=== PATIENT | male | born 1950 | race Caucasian/White ===

== ENCOUNTER 2016-06-01 17:24 | Inpatient (IN) | payer MEDICARE, OTHER ==
[~2016-06-01] VITALS: Ht 180.3 cm; Wt 65.8 kg
[~2016-06-01 17:24] MED LIST: CLON0.1T PO; CYAN100096 PO; DEXL60CA3 PO; FLUO-120 PO; GABA-532 PO; LOSA25TA13 PO; LURA40TA PO; METO50TA3 PO; PRAV40TA3 PO; RANI150T12 PO; TEMA30CA PO; [UNRECOGNIZED DRUG - OTHER]; [UNRECOGNIZED DRUG - OTHER]
[2016-06-01] MEDS ORDERED: IV SET PRIMARY PUMP SET 1 EA INFUS.SET MC ONE ×3 (18:00→22:34)
[2016-06-01] MEDS ORDERED: ONDANSETRON HCL/PF 4 MG/2 ML VIAL IVP ONE (18:00)
[2016-06-01] MEDS ORDERED: IV NS 0.9% 1,000 ML BAG IV ONE ×2 (18:00→20:30)
[2016-06-01] MEDS ORDERED: ONDANSETRON HCL/PF 4 MG/2 ML VIAL ONE (18:00)
[2016-06-01] MEDS ORDERED: IV NS 0.9% 1,000 ML ONE ×2 (18:00→20:15)
[2016-06-01 18:22] LABS: ANION GAP 11 (5-14); CALCIUM, SERUM 8.6 mg/dL (8.5-10.1); CARBON DIOXIDE 31 mmol/L (21-32); CHLORIDE 99 mmol/L (98-107); CREATININE 1.5 mg/dL (0.6-1.3); GFR 47 mL/min (>60); GLUCOSE 132 mg/dL (74-106); POTASSIUM 3.3 mmol/L (3.5-5.1); SODIUM SERUM 137 mmol/L (136-145); UREA NITROGEN, BLOOD 10 mg/dL (7-18)
[2016-06-01 18:28] LABS: ALANINE AMINOTRANSFERASE 48 U/L (12-78); ALBUMIN 2.7 g/dL (3.4-5.0); ASPARTATE AMINOTRANSFERASE 85 U/L (15-37); BILIRUBIN,DIRECT 0.6 mg/dL (0.0-0.2); BILIRUBIN,TOTAL 1.4 mg/dL (0.2-1.0); INDIRECT BILIRUBIN 0.8 mg/dL (0.0-1.1)
[2016-06-01 18:30] LABS: DIFF TOTAL % 100 %; EOSINOPHILS # (AUTO) 0.1 /CMM (0.0-0.7); EOSINOPHILS % (AUTO) 0.7 % (0.0-6.0); HEMATOCRIT 34 % (39-51); LYMPHOCYTES # (AUTO) 0.8 /CMM (0.8-4.8); LYMPHOCYTES % (AUTO) 7.3 % (20.0-44.0); MEAN CORPUSCULAR HEMOGLOBIN 28 PG (26.0-33.0); MEAN CORPUSCULAR HGB CONC 32 g/dl (31.0-36.0); MEAN CORPUSCULAR VOLUME 87 fL (80-96); MONOCYTES # (AUTO) 0.6 /CMM (0.1-1.30); MONOCYTES % (AUTO) 5.9 % (2.0-12.0); NEUTROPHILS % (AUTO) 86.1 % (43.0-81.0); PLATELET COUNT (AUTO) 312 /CMM (150-450); RED BLOOD CELL COUNT(AUTO) 3.92 MIL/uL (4.5-6.0); TROPONIN I < 0.017 ng/mL (0.00-0.056); WHITE BLOOD COUNT (AUTO) 10.5 K/uL (4.3-11.0)
[2016-06-01] MEDS ORDERED: CT SWABBABLE VALVE TRANS SET 1 EA INFUS.SET MC ONE (18:40)
[2016-06-01] MEDS ORDERED: IOHEXOL-300 100 ML VIAL IV ONE (18:40)
[2016-06-01] MEDS ORDERED: IV NS 0.9% 0 ML IV ONE (18:40)
[2016-06-01] MEDS ORDERED: IV SET PRIMARY 1 EA INFUS.SET MC ONE (20:15)
[2016-06-01] MEDS ORDERED: PIPERACILLIN /TAZOBACTAM 3.375 G VIAL IV ONE (20:28)
[2016-06-01] MEDS ORDERED: IV D5W 50 ML IV ONE (20:29)
[2016-06-01] MEDS ORDERED: PIPERACILLIN /TAZOBACTAM 3.375 G in IV D5W 50 ML IV ONE (20:30)
[2016-06-01 21:28] VITALS: BP 158/89
[2016-06-01] MEDS ORDERED: Z GUARD REMEDY 2 OZ OINT TP PRN (22:00)
[2016-06-01] MEDS ORDERED: ACETAMINOPHEN 325 MG TABLET PO PRN (22:00)
[2016-06-01] MEDS: IV NS 0.9% 1,000 ML IV PRN (22:34)
[2016-06-01] MEDS ORDERED: SECONDARY IV SET 1 EA INFUS.SET MC ONE (22:36)
[2016-06-02] MEDS ORDERED: POTASSIUM CHLORIDE 20 MEQ TAB.PRT.SR PO SCH (00:30)
[2016-06-02] MEDS ORDERED: POTASSIUM CHLORIDE 20 MEQ TAB.PRT.SR PO ONE ×3 (00:30→11:30)
[2016-06-02] MEDS ORDERED: PIPERACILLIN /TAZOBACTAM 3.375 G VIAL IV ONE (01:03)
[2016-06-02] MEDS ORDERED: IV D5W 50 ML IV ONE (01:04)
[2016-06-02] MEDS: PIPERACILLIN /TAZOBACTAM 3.375 G in IV D5W 50 ML IV SCH ×4 (01:23→17:03)
[2016-06-02] MEDS ORDERED: ONDANSETRON HCL/PF 4 MG/2 ML VIAL ONE (02:25)
[2016-06-02] MEDS: ONDANSETRON HCL/PF 4 MG/2 ML VIAL IVP PRN ×3 (02:28→14:20)
[2016-06-02 06:43] LABS: DIFF TOTAL % 100 %; EOSINOPHILS % (AUTO) 0.5 % (0.0-6.0); HEMATOCRIT 32 % (39-51); HEMOGLOBIN 10.7 g/dL (13.5-17.5); LYMPHOCYTES # (AUTO) 0.6 /CMM (0.8-4.8); MEAN CORPUSCULAR HEMOGLOBIN 29 PG (26.0-33.0); MEAN CORPUSCULAR HGB CONC 33 g/dl (31.0-36.0); MEAN CORPUSCULAR VOLUME 87 fL (80-96); MONOCYTES # (AUTO) 0.5 /CMM (0.1-1.30); MONOCYTES % (AUTO) 5.6 % (2.0-12.0); NEUTROPHILS # (AUTO) 7.1 /CMM (1.8-8.9); NEUTROPHILS % (AUTO) 86.9 % (43.0-81.0); PLATELET COUNT (AUTO) 287 /CMM (150-450); RED BLOOD CELL COUNT(AUTO) 3.71 MIL/uL (4.5-6.0); WHITE BLOOD COUNT (AUTO) 8.1 K/uL (4.3-11.0)
[2016-06-02 07:32] LABS: ALBUMIN 2.4 g/dL (3.4-5.0); BILIRUBIN,TOTAL 1.3 mg/dL (0.2-1.0); CALCIUM, SERUM 8.1 mg/dL (8.5-10.1); CREATININE 1.5 mg/dL (0.6-1.3); PHOSPHORUS 3.3 mg/dL (2.5-4.9); POTASSIUM 3.4 mmol/L (3.5-5.1); TOTAL PROTEIN, SERUM 7.3 g/dL (6.4-8.2)
[2016-06-02 07:35] LABS: THYROID STIMULATING HORMONE 1.125 uIU/mL (0.358-3.74)
[2016-06-02] MEDS: PANTOPRAZOLE 40 MG VIAL IV SCH (07:54)
[2016-06-02 08:00] VITALS: BP 168/105
[2016-06-02] MEDS: METOPROLOL TARTRATE 50 MG TABLET PO SCH ×2 (09:16→16:58)
[2016-06-02] MEDS: LOSARTAN POTASSIUM 25 MG TABLET PO SCH (09:16)
[2016-06-02] MEDS ORDERED: CLONIDINE HCL 0.1 MG TABLET PO PRN (10:30)
[2016-06-02] MEDS ORDERED: Magnesium 1GM/D5W 100ML PREMIX 100 ML IV SCH (12:00)
[2016-06-02 12:57] LABS: ADD UA MICROSCOPIC YES; KETONES,URINE TRACE (NEGATIVE); LEUKOCYTE ESTERASE ,URINE NEGATIVE (NEGATIVE)
[2016-06-02 12:59] LABS: ADD URINE CULTURE NO; MUCUS,URINE Few /LPF (None Seen); RBC,URINE 0-2 /HPF (0-2); WBC,URINE 0-2 /HPF (0-3)
[2016-06-02] MEDS ORDERED: SECONDARY IV SET 1 EA INFUS.SET MC ONE (14:02)
[2016-06-02 16:00] VITALS: BP 126/82
[2016-06-02] MEDS: CLONIDINE HCL 0.1 MG TABLET PO SCH (18:24)
[2016-06-02] MEDS ORDERED: ONDANSETRON HCL/PF 4 MG/2 ML VIAL IV PRN (18:30)
[2016-06-02 20:00] VITALS: BP 130/80
[2016-06-02] MEDS: ZOLPIDEM TARTRATE 5 MG TABLET PO PRN (21:45)
[2016-06-03] MEDS: PIPERACILLIN /TAZOBACTAM 3.375 G in IV D5W 50 ML IV SCH ×4 (00:03→17:02)
[2016-06-03] MEDS: IV NS 0.9% 1,000 ML IV PRN (05:32)
[2016-06-03 07:33] LABS: CALCIUM, SERUM 8.4 mg/dL (8.5-10.1); CREATININE 1.3 mg/dL (0.6-1.3); POTASSIUM 3.6 mmol/L (3.5-5.1)
[2016-06-03 07:53] VITALS: BP 144/86
[2016-06-03 08:00] VITALS: BP 144/86
[2016-06-03] MEDS: PANTOPRAZOLE 40 MG VIAL IV SCH (08:24)
[2016-06-03] MEDS: MORPHINE SULFATE INJ 2 MG/ML DISP.SYRIN IV PRN ×3 (08:26→19:41)
[2016-06-03] MEDS: METOPROLOL TARTRATE 50 MG TABLET PO SCH ×2 (08:27→16:26)
[2016-06-03] MEDS: LOSARTAN POTASSIUM 25 MG TABLET PO SCH (08:27)
[2016-06-03] MEDS: HYDROGEL DRESSING 90 GM TUBE TP SCH (12:28)
[2016-06-03 16:00] VITALS: BP 151/87
[2016-06-03] MEDS: CLONIDINE HCL 0.1 MG TABLET PO SCH (17:02)
[2016-06-03 19:00] VITALS: BP 149/85
[2016-06-03 20:00] VITALS: BP 149/85
[2016-06-03] MEDS: ZOLPIDEM TARTRATE 5 MG TABLET PO PRN (21:40)
[2016-06-04] MEDS: MORPHINE SULFATE INJ 2 MG/ML DISP.SYRIN IV PRN ×6 (00:04→21:24)
[2016-06-04] MEDS: IV NS 0.9% 1,000 ML IV PRN ×2 (00:04→17:06)
[2016-06-04] MEDS: PIPERACILLIN /TAZOBACTAM 3.375 G in IV D5W 50 ML IV SCH ×5 (00:07→23:10)
[2016-06-04 07:39] LABS: BASOPHILS % (AUTO) 0.3 % (0.0-2.0); DIFF TOTAL % 100 %; EOSINOPHILS # (AUTO) 0.2 /CMM (0.0-0.7); EOSINOPHILS % (AUTO) 2.1 % (0.0-6.0); HEMATOCRIT 29 % (39-51); HEMOGLOBIN 9.7 g/dL (13.5-17.5); LYMPHOCYTES # (AUTO) 0.7 /CMM (0.8-4.8); LYMPHOCYTES % (AUTO) 9.1 % (20.0-44.0); MEAN CORPUSCULAR HEMOGLOBIN 29 PG (26.0-33.0); MEAN CORPUSCULAR HGB CONC 33 g/dl (31.0-36.0); MEAN CORPUSCULAR VOLUME 87 fL (80-96); MONOCYTES # (AUTO) 0.5 /CMM (0.1-1.30); MONOCYTES % (AUTO) 6.4 % (2.0-12.0); NEUTROPHILS # (AUTO) 6.4 /CMM (1.8-8.9); NEUTROPHILS % (AUTO) 82.1 % (43.0-81.0); PLATELET COUNT (AUTO) 262 /CMM (150-450); RED BLOOD CELL COUNT(AUTO) 3.37 MIL/uL (4.5-6.0); WHITE BLOOD COUNT (AUTO) 7.8 K/uL (4.3-11.0)
[2016-06-04 07:42] LABS: CALCIUM, SERUM 7.9 mg/dL (8.5-10.1); CREATININE 1.3 mg/dL (0.6-1.3); POTASSIUM 3.7 mmol/L (3.5-5.1)
[2016-06-04 08:00] VITALS: BP 109/70
[2016-06-04] MEDS: PANTOPRAZOLE 40 MG VIAL IV SCH (08:10)
[2016-06-04] MEDS: LOSARTAN POTASSIUM 25 MG TABLET PO SCH (08:11)
[2016-06-04] MEDS: METOPROLOL TARTRATE 50 MG TABLET PO SCH ×2 (08:11→17:07)
[2016-06-04] MEDS: HYDROGEL DRESSING 90 GM TUBE TP SCH (08:12)
[2016-06-04] MEDS ORDERED: SET RED CAP 1 EA INFUS.SET MC ONE (10:53)
[2016-06-04] MEDS ORDERED: SECONDARY IV SET 1 EA INFUS.SET MC ONE (10:53)
[2016-06-04] MEDS: Magnesium 1GM/D5W 100ML PREMIX 100 ML IV SCH ×2 (10:58→11:57)
[2016-06-04 16:00] VITALS: BP 131/77
[2016-06-04] MEDS: CLONIDINE HCL 0.1 MG TABLET PO SCH (17:08)
[2016-06-04 20:06] VITALS: BP 103/59
[2016-06-04] MEDS: ZOLPIDEM TARTRATE 5 MG TABLET PO PRN (23:10)
[2016-06-05] MEDS: MORPHINE SULFATE INJ 2 MG/ML DISP.SYRIN IV PRN ×5 (03:42→22:38)
[2016-06-05] MEDS: PIPERACILLIN /TAZOBACTAM 3.375 G in IV D5W 50 ML IV SCH ×3 (05:31→17:05)
[2016-06-05 06:23] LABS: BASOPHILS % (AUTO) 0.2 % (0.0-2.0); EOSINOPHILS # (AUTO) 0.1 /CMM (0.0-0.7); EOSINOPHILS % (AUTO) 0.6 % (0.0-6.0); HEMATOCRIT 29 % (39-51); HEMOGLOBIN 9.8 g/dL (13.5-17.5); LYMPHOCYTES # (AUTO) 0.8 /CMM (0.8-4.8); LYMPHOCYTES % (AUTO) 9.1 % (20.0-44.0); MEAN CORPUSCULAR HEMOGLOBIN 29 PG (26.0-33.0); MEAN CORPUSCULAR HGB CONC 34 g/dl (31.0-36.0); MEAN CORPUSCULAR VOLUME 86 fL (80-96); MONOCYTES # (AUTO) 0.7 /CMM (0.1-1.30); MONOCYTES % (AUTO) 7.6 % (2.0-12.0); NEUTROPHILS # (AUTO) 7.1 /CMM (1.8-8.9); NEUTROPHILS % (AUTO) 82.5 % (43.0-81.0); PLATELET COUNT (AUTO) 266 /CMM (150-450); RED BLOOD CELL COUNT(AUTO) 3.41 MIL/uL (4.5-6.0); WHITE BLOOD COUNT (AUTO) 8.6 K/uL (4.3-11.0)
[2016-06-05 07:00] LABS: CREATININE 1.2 mg/dL (0.6-1.3); POTASSIUM 3.3 mmol/L (3.5-5.1)
[2016-06-05 08:00] VITALS: BP 139/85
[2016-06-05] MEDS: PANTOPRAZOLE 40 MG VIAL IV SCH (08:41)
[2016-06-05] MEDS: LOSARTAN POTASSIUM 25 MG TABLET PO SCH (08:41)
[2016-06-05] MEDS: METOPROLOL TARTRATE 50 MG TABLET PO SCH ×2 (08:41→16:48)
[2016-06-05] MEDS: HYDROGEL DRESSING 90 GM TUBE TP SCH (08:49)
[2016-06-05] MEDS ORDERED: POTASSIUM CHLORIDE 20 MEQ TAB.PRT.SR PO SCH (12:00)
[2016-06-05] MEDS: IV NS 0.9% 1,000 ML IV PRN (12:20)
[2016-06-05 16:00] VITALS: BP 135/86
[2016-06-05] MEDS: CLONIDINE HCL 0.1 MG TABLET PO SCH (17:06)
[2016-06-05 18:00] VITALS: BP 135/86
[2016-06-05 20:00] VITALS: BP 155/85
[2016-06-05] MEDS: ZOLPIDEM TARTRATE 5 MG TABLET PO PRN (21:22)
[2016-06-06] MEDS: PIPERACILLIN /TAZOBACTAM 3.375 G in IV D5W 50 ML IV SCH ×4 (00:12→17:25)
[2016-06-06] MEDS: PANTOPRAZOLE 40 MG VIAL IV SCH (07:44)
[2016-06-06] MEDS: LOSARTAN POTASSIUM 25 MG TABLET PO SCH (07:44)
[2016-06-06] MEDS: METOPROLOL TARTRATE 50 MG TABLET PO SCH ×2 (07:44→17:24)
[2016-06-06] MEDS: MORPHINE SULFATE INJ 2 MG/ML DISP.SYRIN IV PRN ×3 (07:45→17:42)
[2016-06-06] MEDS: HYDROGEL DRESSING 90 GM TUBE TP SCH (07:45)
[2016-06-06 08:00] VITALS: BP 143/85
[2016-06-06 08:02] LABS: BASOPHILS % (AUTO) 0.2 % (0.0-2.0); DIFF TOTAL % 100 %; EOSINOPHILS # (AUTO) 0.1 /CMM (0.0-0.7); EOSINOPHILS % (AUTO) 0.8 % (0.0-6.0); HEMATOCRIT 31 % (39-51); HEMOGLOBIN 10.4 g/dL (13.5-17.5); LYMPHOCYTES # (AUTO) 0.7 /CMM (0.8-4.8); LYMPHOCYTES % (AUTO) 9.5 % (20.0-44.0); MEAN CORPUSCULAR HEMOGLOBIN 29 PG (26.0-33.0); MEAN CORPUSCULAR HGB CONC 34 g/dl (31.0-36.0); MEAN CORPUSCULAR VOLUME 86 fL (80-96); MONOCYTES # (AUTO) 0.6 /CMM (0.1-1.30); MONOCYTES % (AUTO) 7.6 % (2.0-12.0); NEUTROPHILS # (AUTO) 6.1 /CMM (1.8-8.9); NEUTROPHILS % (AUTO) 81.9 % (43.0-81.0); PLATELET COUNT (AUTO) 272 /CMM (150-450); RED BLOOD CELL COUNT(AUTO) 3.59 MIL/uL (4.5-6.0); WHITE BLOOD COUNT (AUTO) 7.4 K/uL (4.3-11.0)
[2016-06-06 08:08] LABS: CALCIUM, SERUM 8.3 mg/dL (8.5-10.1); CREATININE 1.2 mg/dL (0.6-1.3); POTASSIUM 3.4 mmol/L (3.5-5.1)
[2016-06-06 08:16] LABS: INR 1.15 (0.87-1.13); PROTHROMBIN TIME 12.4 SECS (9.5-12.7)
[2016-06-06] MEDS: IV NS 0.9% 1,000 ML IV PRN (11:41)
[2016-06-06] MEDS ORDERED: POTASSIUM CHLORIDE 20 MEQ TAB.PRT.SR PO ONE (12:00)
[2016-06-06] MEDS ORDERED: FENTANYL PF 100MCG/2ML AMPUL ONE (12:48)
[2016-06-06] MEDS ORDERED: SUCCINYLCHOLINE CHLORIDE 20 MG/ML VIAL ONE (12:49)
[2016-06-06] MEDS ORDERED: MIDAZOLAM HCL 2 MG/2ML VIAL ONE (12:49)
[2016-06-06] MEDS ORDERED: IOHEXOL 100 ML IV ONE (13:21)
[2016-06-06 16:00] VITALS: BP 142/86
[2016-06-06] MEDS: CLONIDINE HCL 0.1 MG TABLET PO SCH (17:23)
[2016-06-06 20:00] VITALS: BP 136/84
[2016-06-06] MEDS: ZOLPIDEM TARTRATE 5 MG TABLET PO PRN (21:23)
[2016-06-06 22:00] VITALS: BP 136/84
[2016-06-07] MEDS: PIPERACILLIN /TAZOBACTAM 3.375 G in IV D5W 50 ML IV SCH ×3 (00:06→11:48)
[2016-06-07] MEDS: MORPHINE SULFATE INJ 2 MG/ML DISP.SYRIN IV PRN ×3 (00:31→10:29)
[2016-06-07] MEDS: IV NS 0.9% 1,000 ML IV PRN (06:26)
[2016-06-07 07:42] LABS: BASOPHILS % (AUTO) 0.3 % (0.0-2.0); DIFF TOTAL % 100 %; EOSINOPHILS # (AUTO) 0.1 /CMM (0.0-0.7); EOSINOPHILS % (AUTO) 1.5 % (0.0-6.0); HEMATOCRIT 28 % (39-51); HEMOGLOBIN 9.2 g/dL (13.5-17.5); LYMPHOCYTES # (AUTO) 0.9 /CMM (0.8-4.8); LYMPHOCYTES % (AUTO) 12.3 % (20.0-44.0); MEAN CORPUSCULAR HEMOGLOBIN 29 PG (26.0-33.0); MEAN CORPUSCULAR HGB CONC 33 g/dl (31.0-36.0); MEAN CORPUSCULAR VOLUME 87 fL (80-96); MONOCYTES # (AUTO) 0.7 /CMM (0.1-1.30); MONOCYTES % (AUTO) 10.2 % (2.0-12.0); NEUTROPHILS # (AUTO) 5.3 /CMM (1.8-8.9); NEUTROPHILS % (AUTO) 75.7 % (43.0-81.0); PLATELET COUNT (AUTO) 245 /CMM (150-450); RED BLOOD CELL COUNT(AUTO) 3.19 MIL/uL (4.5-6.0); WHITE BLOOD COUNT (AUTO) 6.9 K/uL (4.3-11.0)
[2016-06-07 07:56] LABS: BILIRUBIN,TOTAL 0.6 mg/dL (0.2-1.0); CALCIUM, SERUM 7.7 mg/dL (8.5-10.1); CREATININE 1.2 mg/dL (0.6-1.3); POTASSIUM 3.6 mmol/L (3.5-5.1); TOTAL PROTEIN, SERUM 6.4 g/dL (6.4-8.2)
[2016-06-07 08:00] VITALS: BP 156/95
[2016-06-07 08:25] VITALS: BP 156/95
[2016-06-07] MEDS: PANTOPRAZOLE 40 MG VIAL IV SCH (08:25)
[2016-06-07] MEDS: METOPROLOL TARTRATE 50 MG TABLET PO SCH (08:25)
[2016-06-07] MEDS: LOSARTAN POTASSIUM 25 MG TABLET PO SCH (08:25)
[2016-06-07] MEDS: HYDROGEL DRESSING 90 GM TUBE TP SCH (08:26)
[2016-06-07] MEDS ORDERED: AMOX-430 PO (12:18)
== END 2016-06-07 15:50 | disposition home or self-care (01) | DRG 871 ==
LOC: ER 18:00 → MEDSG2 21:04
PROVIDERS: ADMIT Nurse Practitioner Acute Care; ATTEND Nurse Practitioner Acute Care
PROC: 0FPB8DZ Removal of Intraluminal Device from Hepatobiliary Duct, Via Natural or Artificial Opening Endoscopic (ICD-10-PCS; 2016-06-06)
PROC: 0FC98ZZ Extirpation of Matter from Common Bile Duct, Via Natural or Artificial Opening Endoscopic (ICD-10-PCS; principal; 2016-06-06 13:00)
DX: A41.9 Sepsis, unspecified organism (principal); N17.0 Acute kidney failure with tubular necrosis; L89.153 Pressure ulcer of sacral region, stage 3; K91.86 Retained cholelithiasis following cholecystectomy; E87.6 Hypokalemia; D64.9 Anemia, unspecified; E78.1 Pure hyperglyceridemia; E86.0 Dehydration; F17.210 Nicotine dependence, cigarettes, uncomplicated; F41.9 Anxiety disorder, unspecified; N40.0 Benign prostatic hyperplasia without lower urinary tract symptoms; K44.9 Diaphragmatic hernia without obstruction or gangrene; Z91.5 Personal history of self-harm; Z86.19 Personal history of other infectious and parasitic diseases; F31.9 Bipolar disorder, unspecified; R91.8 Other nonspecific abnormal finding of lung field; Z90.49 Acquired absence of other specified parts of digestive tract; K29.80 Duodenitis without bleeding; R16.1 Splenomegaly, not elsewhere classified; Y83.9 Surgical procedure, unspecified as the cause of abnormal reaction of the patient, or of later complication, without mention of misadventure at the time of the procedure; Y92.009 Unspecified place in unspecified non-institutional (private) residence as the place of occurrence of the external cause; K57.30 Diverticulosis of large intestine without perforation or abscess without bleeding; I12.9 Hypertensive chronic kidney disease with stage 1 through stage 4 chronic kidney disease, or unspecified chronic kidney disease; N18.9 Chronic kidney disease, unspecified; R65.20 Severe sepsis without septic shock
CPT/HCPCS: 36415; 71010-TC; 74000-TC; 80048-TC; 80053-TC; 80061-TC; 80076-TC; 81000-TC; 83605-TC; 83690-TC; 83735-TC; 84100-TC; 84443-TC; 84484-TC; 85025-TC; 85610-TC; 85730-TC; 87040-TC; 87070-TC; 87081-TC; 87186-TC; A4606; A6248; A6253; A6402; A6403; C9113; J0330; J2250; J2270; J2405; J2543; J3010; J3475; J7030; J7050; J7060; Q9967; Z7610

== ENCOUNTER 2016-06-13 22:31 | Inpatient (IN) | payer MEDICARE, OTHER ==
[~2016-06-13] VITALS: Ht 177.8 cm; Wt 68.0 kg
[~2016-06-13 22:31] MED LIST changes: +AMOX-430 PO; -[UNRECOGNIZED DRUG - OTHER]; -[UNRECOGNIZED DRUG - OTHER]
[2016-06-14] VITALS (7 sets, daily range): BP systolic 101–142; BP diastolic 70–84
[2016-06-14] MEDS ORDERED: RISP0.5T20 PO (02:28)
[2016-06-14] MEDS ORDERED: ACETAMINOPHEN 325 MG TABLET PO PRN (03:00)
[2016-06-14] MEDS ORDERED: IV NS 0.9% 1,000 ML BAG IV ONE (03:00)
[2016-06-14] MEDS ORDERED: VANCOMYCIN 1 GM in IV D5W 250 ML IV ONE (03:00)
[2016-06-14] MEDS ORDERED: CYANOCOBALAMIN 1,000 MCG/ML VIAL SQ ONE (03:00)
[2016-06-14] MEDS ORDERED: IV NS 0.9% 1,000 ML ONE (03:09)
[2016-06-14] MEDS ORDERED: IV SET PRIMARY PUMP SET 1 EA INFUS.SET MC ONE ×2 (03:09→05:54)
[2016-06-14] MEDS ORDERED: VANCOMYCIN 1 GM VIAL ONE (04:32)
[2016-06-14] MEDS ORDERED: IV D5W 250 ML IV ONE (04:33)
[2016-06-14] MEDS ORDERED: CYANOCOBALAMIN 1,000 MCG/ML VIAL ONE (04:34)
[2016-06-14] MEDS ORDERED: SECONDARY IV SET 1 EA INFUS.SET MC ONE ×2 (05:54→09:48)
[2016-06-14] MEDS ORDERED: IV NS 0.9% 250 ML IV ONE (05:54)
[2016-06-14] MEDS ORDERED: PIPERACILLIN /TAZOBACTAM 3.375 G in IV D5W 50 ML IV SCH (06:00)
[2016-06-14 07:45] LABS: KETONES,URINE NEGATIVE (NEGATIVE); LEUKOCYTE ESTERASE ,URINE NEGATIVE (NEGATIVE)
[2016-06-14 07:48] LABS: ADD UA MICROSCOPIC YES
[2016-06-14 07:56] LABS: ADD URINE CULTURE NO; RBC,URINE 0-2 /HPF (0-2); WBC,URINE NONE SEEN /HPF (0-3)
[2016-06-14] MEDS ORDERED: FEE PK DOSING 1 MIN EA MC ONE (08:47)
[2016-06-14] MEDS: PANTOPRAZOLE 40 MG VIAL IV SCH (08:52)
[2016-06-14] MEDS: MORPHINE SULFATE INJ 2 MG/ML DISP.SYRIN IV PRN ×3 (08:53→20:38)
[2016-06-14] MEDS: METOPROLOL TARTRATE 50 MG TABLET PO SCH ×2 (08:58→17:00)
[2016-06-14] MEDS: LOSARTAN POTASSIUM 25 MG TABLET PO SCH (08:58)
[2016-06-14] MEDS: ATORVASTATIN 10 MG TABLET PO SCH (08:58)
[2016-06-14] MEDS: FLUOXETINE HCL 20 MG CAPSULE PO SCH (08:59)
[2016-06-14] MEDS: risperiDONE 1 MG TABLET PO SCH ×2 (08:59→17:00)
[2016-06-14] MEDS: GABAPENTIN 100 MG CAPSULE PO SCH ×3 (08:59→17:00)
[2016-06-14] MEDS ORDERED: Medication Not On Formulary EA (Dexlansoprazole (Dexilant) 1 CAP) PO SCH (09:00)
[2016-06-14] MEDS: PIPERACILLIN /TAZOBACTAM 3.375 G in IV D5W 50 ML IV SCH ×4 (09:48→23:27)
[2016-06-14] MEDS: VANCOMYCIN 0.75 GM in IV D5W 250 ML IV SCH (17:41)
[2016-06-14] MEDS: CLONIDINE HCL 0.1 MG TABLET PO SCH (17:41)
[2016-06-14] MEDS ORDERED: ONDANSETRON HCL/PF 4 MG/2 ML VIAL IV PRN (20:00)
[2016-06-14] MEDS: TEMAZEPAM 15 MG CAPSULE PO SCH (22:03)
[2016-06-15] MEDS: VANCOMYCIN 0.75 GM in IV D5W 250 ML IV SCH ×2 (05:38→18:54)
[2016-06-15] MEDS: PIPERACILLIN /TAZOBACTAM 3.375 G in IV D5W 50 ML IV SCH ×3 (05:38→18:28)
[2016-06-15 07:34] LABS: BASOPHILS % (AUTO) 0.5 % (0.0-2.0); DIFF TOTAL % 100 %; EOSINOPHILS # (AUTO) 0.2 /CMM (0.0-0.7); EOSINOPHILS % (AUTO) 2.9 % (0.0-6.0); HEMATOCRIT 30 % (39-51); HEMOGLOBIN 9.4 g/dL (13.5-17.5); LYMPHOCYTES # (AUTO) 1.7 /CMM (0.8-4.8); LYMPHOCYTES % (AUTO) 22.9 % (20.0-44.0); MEAN CORPUSCULAR HEMOGLOBIN 27 PG (26.0-33.0); MEAN CORPUSCULAR HGB CONC 32 g/dl (31.0-36.0); MEAN CORPUSCULAR VOLUME 85 fL (80-96); MONOCYTES # (AUTO) 0.5 /CMM (0.1-1.30); MONOCYTES % (AUTO) 7.5 % (2.0-12.0); NEUTROPHILS # (AUTO) 4.8 /CMM (1.8-8.9); NEUTROPHILS % (AUTO) 66.2 % (43.0-81.0); PLATELET COUNT (AUTO) 257 /CMM (150-450); RED BLOOD CELL COUNT(AUTO) 3.48 MIL/uL (4.5-6.0); WHITE BLOOD COUNT (AUTO) 7.2 K/uL (4.3-11.0)
[2016-06-15 07:55] LABS: INR 1.08 (0.87-1.13); PROTHROMBIN TIME 11.7 SECS (9.5-12.7)
[2016-06-15 07:59] LABS: ALBUMIN 2.1 g/dL (3.4-5.0); BILIRUBIN,TOTAL 0.5 mg/dL (0.2-1.0); CALCIUM, SERUM 8.3 mg/dL (8.5-10.1); CREATININE 1.4 mg/dL (0.6-1.3); POTASSIUM 3.1 mmol/L (3.5-5.1)
[2016-06-15 08:00] VITALS: BP 131/85
[2016-06-15 08:32] LABS: CREATINE KINASE MB 0.5 ng/mL (0-3.6)
[2016-06-15] MEDS: LOSARTAN POTASSIUM 25 MG TABLET PO SCH (09:00)
[2016-06-15] MEDS: ATORVASTATIN 10 MG TABLET PO SCH (09:00)
[2016-06-15] MEDS: risperiDONE 1 MG TABLET PO SCH ×2 (09:00→17:40)
[2016-06-15] MEDS: METOPROLOL TARTRATE 50 MG TABLET PO SCH ×2 (09:00→17:00)
[2016-06-15] MEDS: PANTOPRAZOLE 40 MG VIAL IV SCH (09:00)
[2016-06-15] MEDS: GABAPENTIN 100 MG CAPSULE PO SCH ×3 (09:00→17:40)
[2016-06-15] MEDS: FLUOXETINE HCL 20 MG CAPSULE PO SCH (09:00)
[2016-06-15] MEDS: POTASSIUM CHLORIDE 20 MEQ TAB.PRT.SR PO SCH ×2 (11:04→11:52)
[2016-06-15] MEDS: MORPHINE SULFATE INJ 2 MG/ML DISP.SYRIN IV PRN ×2 (11:53→19:49)
[2016-06-15 16:00] VITALS: BP 105/69
[2016-06-15] MEDS: CLONIDINE HCL 0.1 MG TABLET PO SCH (18:00)
[2016-06-15 20:00] VITALS: BP 129/80
[2016-06-15] MEDS: TEMAZEPAM 15 MG CAPSULE PO SCH (21:54)
[2016-06-15 22:00] VITALS: BP 129/80
[2016-06-16] VITALS (13 sets, daily range): BP systolic 103–156; BP diastolic 65–97
[2016-06-16] MEDS: PIPERACILLIN /TAZOBACTAM 3.375 G in IV D5W 50 ML IV SCH ×4 (00:23→20:42)
[2016-06-16] MEDS ORDERED: IOHEXOL 240MG/ML 100 ML IV ONE (06:11)
[2016-06-16] MEDS: VANCOMYCIN 0.75 GM in IV D5W 250 ML IV SCH ×2 (06:14→21:58)
[2016-06-16] MEDS ORDERED: FENTANYL PF 100MCG/2ML AMPUL ONE (06:55)
[2016-06-16] MEDS ORDERED: SUCCINYLCHOLINE CHLORIDE 20 MG/ML VIAL ONE (06:55)
[2016-06-16] MEDS ORDERED: MIDAZOLAM HCL 2 MG/2ML VIAL ONE (06:55)
[2016-06-16 08:25] LABS: CALCIUM, SERUM 8.3 mg/dL (8.5-10.1); CREATININE 1.3 mg/dL (0.6-1.3); POTASSIUM 3.4 mmol/L (3.5-5.1)
[2016-06-16] MEDS: MORPHINE SULFATE INJ 2 MG/ML DISP.SYRIN IV PRN ×4 (08:50→21:21)
[2016-06-16] MEDS ORDERED: DIATR MEGLU/DIATRIZOATE SODIUM 30 ML BOTTLE (GASTROGRAPHIN) ONE (09:08)
[2016-06-16] MEDS ORDERED: FENTANYL PF 250MCG/5ML AMPUL IV ONE (10:00)
[2016-06-16] MEDS ORDERED: MIDAZOLAM HCL 5MG/ML VIAL 25 MG/5 ML VIAL IV ONE (10:00)
[2016-06-16] MEDS ORDERED: NALOXONE PREFILLED SYRINGE 2 MG/2 ML SYRINGE IV ONE (10:00)
[2016-06-16] MEDS ORDERED: CT SWABBABLE VALVE TRANS SET 1 EA INFUS.SET MC ONE (10:31)
[2016-06-16] MEDS ORDERED: IOHEXOL-300 100 ML VIAL IV ONE (10:31)
[2016-06-16] MEDS ORDERED: IV NS 0.9% 250 ML IV ONE ×2 (10:31→17:18)
[2016-06-16] MEDS ORDERED: LIDOCAINE HCL/PF 1% 30 ML SDV ONE (10:56)
[2016-06-16] MEDS ORDERED: IV SET PRIMARY 1 EA INFUS.SET MC ONE (10:58)
[2016-06-16] MEDS ORDERED: POTASSIUM CHLORIDE 20 MEQ TAB.PRT.SR PO ONE (11:00)
[2016-06-16] MEDS: ATORVASTATIN 10 MG TABLET PO SCH (12:31)
[2016-06-16] MEDS: PANTOPRAZOLE 40 MG VIAL IV SCH (12:31)
[2016-06-16] MEDS: risperiDONE 1 MG TABLET PO SCH ×2 (12:32→17:23)
[2016-06-16] MEDS: GABAPENTIN 100 MG CAPSULE PO SCH ×3 (12:32→17:23)
[2016-06-16] MEDS: LOSARTAN POTASSIUM 25 MG TABLET PO SCH (12:32)
[2016-06-16] MEDS: FLUOXETINE HCL 20 MG CAPSULE PO SCH (12:32)
[2016-06-16] MEDS: METOPROLOL TARTRATE 50 MG TABLET PO SCH ×2 (12:32→18:50)
[2016-06-16] MEDS ORDERED: HYDROGEL DRESSING 90 GM TUBE TP PRN (14:30)
[2016-06-16] MEDS ORDERED: IV SET PRIMARY PUMP SET 1 EA INFUS.SET MC ONE (17:18)
[2016-06-16] MEDS ORDERED: SECONDARY IV SET 1 EA INFUS.SET MC ONE (17:19)
[2016-06-16] MEDS: HYDROGEL DRESSING 90 GM TUBE TP SCH (18:50)
[2016-06-16 19:44] LABS: APPEARANCE,UNSPUN,BODY FLUID CLOUDY (CLEAR); COLOR,BODY FLUID AMBER (LT YELLOW)
[2016-06-16 19:58] LABS: RBC, BODY FLUID 100000 /cu. mm. (0-2000); WBC, BODY FLUID 266000 /cu. mm. (0-200)
[2016-06-16 20:03] LABS: POLYNUCLEAR, BODY FLUID 98 % (0-25)
[2016-06-16] MEDS: CLONIDINE HCL 0.1 MG TABLET PO SCH (20:42)
[2016-06-16] MEDS: TEMAZEPAM 15 MG CAPSULE PO SCH (21:57)
[2016-06-17] MEDS: PIPERACILLIN /TAZOBACTAM 3.375 G in IV D5W 50 ML IV SCH ×4 (02:25→17:42)
[2016-06-17] MEDS ORDERED: IOHEXOL 240MG/ML 50 ML IV ONE (05:52)
[2016-06-17] MEDS: VANCOMYCIN 0.75 GM in IV D5W 250 ML IV SCH (06:00)
[2016-06-17] MEDS ORDERED: MIDAZOLAM HCL 2 MG/2ML VIAL ONE (06:25)
[2016-06-17] MEDS ORDERED: SUCCINYLCHOLINE CHLORIDE 20 MG/ML VIAL ONE (06:25)
[2016-06-17] MEDS: ATORVASTATIN 10 MG TABLET PO SCH (08:45)
[2016-06-17] MEDS: risperiDONE 1 MG TABLET PO SCH ×2 (08:45→17:42)
[2016-06-17] MEDS: GABAPENTIN 100 MG CAPSULE PO SCH ×3 (08:46→17:42)
[2016-06-17] MEDS: PANTOPRAZOLE 40 MG VIAL IV SCH (08:46)
[2016-06-17] MEDS: FLUOXETINE HCL 20 MG CAPSULE PO SCH (08:46)
[2016-06-17 08:50] LABS: BASOPHILS % (AUTO) 0.1 % (0.0-2.0); DIFF TOTAL % 100 %; EOSINOPHILS # (AUTO) 0.1 /CMM (0.0-0.7); EOSINOPHILS % (AUTO) 1.7 % (0.0-6.0); HEMATOCRIT 34 % (39-51); HEMOGLOBIN 10.9 g/dL (13.5-17.5); LYMPHOCYTES # (AUTO) 0.6 /CMM (0.8-4.8); LYMPHOCYTES % (AUTO) 7.3 % (20.0-44.0); MEAN CORPUSCULAR HEMOGLOBIN 27 PG (26.0-33.0); MEAN CORPUSCULAR HGB CONC 32 g/dl (31.0-36.0); MEAN CORPUSCULAR VOLUME 85 fL (80-96); MONOCYTES # (AUTO) 0.4 /CMM (0.1-1.30); MONOCYTES % (AUTO) 5.2 % (2.0-12.0); NEUTROPHILS # (AUTO) 7.3 /CMM (1.8-8.9); NEUTROPHILS % (AUTO) 85.7 % (43.0-81.0); PLATELET COUNT (AUTO) 276 /CMM (150-450); RED BLOOD CELL COUNT(AUTO) 4.01 MIL/uL (4.5-6.0); WHITE BLOOD COUNT (AUTO) 8.6 K/uL (4.3-11.0)
[2016-06-17] MEDS: MORPHINE SULFATE INJ 2 MG/ML DISP.SYRIN IV PRN ×3 (08:55→20:37)
[2016-06-17 08:59] LABS: CALCIUM, SERUM 8.7 mg/dL (8.5-10.1); CREATININE 1.4 mg/dL (0.6-1.3); POTASSIUM 3.7 mmol/L (3.5-5.1)
[2016-06-17] MEDS: HYDROGEL DRESSING 90 GM TUBE TP SCH (08:59)
[2016-06-17 09:00] VITALS: BP 124/76
[2016-06-17] MEDS: LOSARTAN POTASSIUM 25 MG TABLET PO SCH (09:00)
[2016-06-17] MEDS ORDERED: VANCOMYCIN 0.75 GM in IV D5W 250 ML IV SCH (09:00)
[2016-06-17] MEDS: METOPROLOL TARTRATE 50 MG TABLET PO SCH ×2 (09:00→17:44)
[2016-06-17 09:09] LABS: INR 1.1 (0.87-1.13); PROTHROMBIN TIME 11.9 SECS (9.5-12.7)
[2016-06-17 16:00] VITALS: BP 112/75
[2016-06-17] MEDS: CLONIDINE HCL 0.1 MG TABLET PO SCH (17:52)
[2016-06-17 20:00] VITALS: BP 98/67
[2016-06-17 22:00] VITALS: BP 98/67
[2016-06-17] MEDS: TEMAZEPAM 15 MG CAPSULE PO SCH (22:06)
[2016-06-18] MEDS: PIPERACILLIN /TAZOBACTAM 3.375 G in IV D5W 50 ML IV SCH ×3 (02:24→12:39)
[2016-06-18 07:18] LABS: CALCIUM, SERUM 8.4 mg/dL (8.5-10.1); CREATININE 1.3 mg/dL (0.6-1.3); POTASSIUM 3.5 mmol/L (3.5-5.1)
[2016-06-18 08:00] VITALS: BP 133/83
[2016-06-18] MEDS: LOSARTAN POTASSIUM 25 MG TABLET PO SCH (08:53)
[2016-06-18] MEDS: FLUOXETINE HCL 20 MG CAPSULE PO SCH (08:53)
[2016-06-18] MEDS: GABAPENTIN 100 MG CAPSULE PO SCH ×3 (08:53→17:24)
[2016-06-18] MEDS: PANTOPRAZOLE 40 MG VIAL IV SCH (08:53)
[2016-06-18] MEDS: risperiDONE 1 MG TABLET PO SCH ×2 (08:53→17:24)
[2016-06-18] MEDS: ATORVASTATIN 10 MG TABLET PO SCH (08:53)
[2016-06-18] MEDS: METOPROLOL TARTRATE 50 MG TABLET PO SCH ×2 (08:54→17:24)
[2016-06-18] MEDS: HYDROGEL DRESSING 90 GM TUBE TP SCH (08:56)
[2016-06-18] MEDS: MORPHINE SULFATE INJ 2 MG/ML DISP.SYRIN IV PRN (09:05)
[2016-06-18] MEDS ORDERED: CEFT1VIA15 IV (13:38)
[2016-06-18 16:00] VITALS: BP 142/86
[2016-06-18] MEDS ORDERED: PIPE3.379 IV (16:39)
[2016-06-18 17:24] VITALS: BP 142/86
== END 2016-06-18 18:30 | DRG 423 ==
LOC: MED 06-14 01:33 → TELE 06-14 07:39 → MED 06-14 07:39
PROVIDERS: ADMIT Internal Medicine; ATTEND Internal Medicine
PROC: BF13YZZ Fluoroscopy of Gallbladder and Bile Ducts using Other Contrast (ICD-10-PCS; 2016-06-16)
PROC: 0W9G3ZZ Drainage of Peritoneal Cavity, Percutaneous Approach (ICD-10-PCS; 2016-06-16)
PROC: 0F798DZ Dilation of Common Bile Duct with Intraluminal Device, Via Natural or Artificial Opening Endoscopic (ICD-10-PCS; principal; 2016-06-16 07:00)
PROC: 0JB70ZZ Excision of Back Subcutaneous Tissue and Fascia, Open Approach (ICD-10-PCS; 2016-06-17)
PROC: 0FPB8DZ Removal of Intraluminal Device from Hepatobiliary Duct, Via Natural or Artificial Opening Endoscopic (ICD-10-PCS; 2016-06-17)
PROC: BF13YZZ Fluoroscopy of Gallbladder and Bile Ducts using Other Contrast (ICD-10-PCS; 2016-06-17)
PROC: 0FC88ZZ Extirpation of Matter from Cystic Duct, Via Natural or Artificial Opening Endoscopic (ICD-10-PCS; 2016-06-17)
PROC: 0F788DZ Dilation of Cystic Duct with Intraluminal Device, Via Natural or Artificial Opening Endoscopic (ICD-10-PCS; 2016-06-17)
DX: K83.8 Other specified diseases of biliary tract (principal); K65.1 Peritoneal abscess; N17.0 Acute kidney failure with tubular necrosis; L89.153 Pressure ulcer of sacral region, stage 3; K91.89 Other postprocedural complications and disorders of digestive system; T81.31XA Disruption of external operation (surgical) wound, not elsewhere classified, initial encounter; J95.812 Postprocedural air leak; D64.9 Anemia, unspecified; E87.6 Hypokalemia; E88.09 Other disorders of plasma-protein metabolism, not elsewhere classified; Z90.49 Acquired absence of other specified parts of digestive tract; E66.9 Obesity, unspecified; Z68.21 Body mass index [BMI] 21.0-21.9, adult; Y83.9 Surgical procedure, unspecified as the cause of abnormal reaction of the patient, or of later complication, without mention of misadventure at the time of the procedure; Y82.9 Unspecified medical devices associated with adverse incidents; Y92.009 Unspecified place in unspecified non-institutional (private) residence as the place of occurrence of the external cause; F32.9 Major depressive disorder, single episode, unspecified; B96.20 Unspecified Escherichia coli [E. coli] as the cause of diseases classified elsewhere; B95.2 Enterococcus as the cause of diseases classified elsewhere; F42.9 Obsessive-compulsive disorder, unspecified; I12.9 Hypertensive chronic kidney disease with stage 1 through stage 4 chronic kidney disease, or unspecified chronic kidney disease; N18.9 Chronic kidney disease, unspecified; N40.0 Benign prostatic hyperplasia without lower urinary tract symptoms
CPT/HCPCS: 36415; 71010-TC; 74000-TC; 75989-TC; 80048-TC; 80053-TC; 80202-TC; 81000-TC; 82553-TC; 83605-TC; 85025-TC; 85610-TC; 85730-TC; 87040-TC; 87070-TC; 87081-TC; 87086-TC; 87186-TC; 89051-TC; 93307-TC; A4606; A6248; A6253; A6402; A6403; A6407; C9113; J0330; J2250; J2270; J2310; J2405; J2543; J2704; J3010; J3370; J3420; J3490; J7030; J7050; J7060; Q9963; Q9966; Q9967; Z7610

== ENCOUNTER 2016-07-26 13:22 | Inpatient (IN) | payer MEDICARE, OTHER ==
[~2016-07-26] VITALS: Ht 180.3 cm; Wt 69.9 kg
[~2016-07-26 13:22] MED LIST changes: -AMOX-430 PO; +PIPE3.379 IV; +RISP0.5T20 PO
--- NOTE | 2016-07-26 13:35 | NUR ---
pt presents to er c/o L sided abd pain and n/v with "dark brown" emesis. resp even unlabored. skin warm nondiaphoretic. skin color appropriate. denies blood in stool. a/ox4. no vomiting witnessed at this time. in er bed 10 on monitor.
[2016-07-26] MEDS ORDERED: MORPHINE SULFATE INJ 4 MG/ML DISP.SYRIN ONE ×2 (13:53→17:10)
[2016-07-26] MEDS ORDERED: ONDANSETRON HCL/PF 4 MG/2 ML VIAL ONE (13:53)
[2016-07-26] MEDS ORDERED: IV NS 0.9% 1,000 ML ONE (13:53)
[2016-07-26] MEDS ORDERED: IV SET PRIMARY PUMP SET 1 EA INFUS.SET MC ONE ×2 (13:53→19:45)
[2016-07-26] MEDS ORDERED: IV SET PRIMARY 1 EA INFUS.SET MC ONE (13:53)
[2016-07-26 13:55] LABS: BASOPHILS # (AUTO) 0.1 /CMM (0.0-0.2); BASOPHILS % (AUTO) 0.7 % (0.0-2.0); EOSINOPHILS # (AUTO) 0.4 /CMM (0.0-0.7); EOSINOPHILS % (AUTO) 5.7 % (0.0-6.0); HEMATOCRIT 38 % (39-51); HEMOGLOBIN 12.4 g/dL (13.5-17.5); LYMPHOCYTES # (AUTO) 0.8 /CMM (0.8-4.8); MEAN CORPUSCULAR HEMOGLOBIN 27 PG (26.0-33.0); MEAN CORPUSCULAR HGB CONC 32 g/dl (31.0-36.0); MEAN CORPUSCULAR VOLUME 85 fL (80-96); MONOCYTES # (AUTO) 0.5 /CMM (0.1-1.30); MONOCYTES % (AUTO) 6.1 % (2.0-12.0); NEUTROPHILS # (AUTO) 5.8 /CMM (1.8-8.9); NEUTROPHILS % (AUTO) 76.5 % (43.0-81.0); PLATELET COUNT (AUTO) 173 /CMM (150-450); RDW COEFFICIENT OF VARIATION 16.4 (11.5-15.0); RED BLOOD CELL COUNT(AUTO) 4.53 MIL/uL (4.5-6.0); WHITE BLOOD COUNT (AUTO) 7.6 K/uL (4.3-11.0)
[2016-07-26] MEDS ORDERED: IV NS 0.9% 1,000 ML BAG IV ONE (14:00)
[2016-07-26] MEDS ORDERED: MORPHINE SULFATE INJ 2 MG/ML DISP.SYRIN IV ONE (14:00)
[2016-07-26] MEDS ORDERED: ONDANSETRON HCL/PF 4 MG/2 ML VIAL IVP ONE (14:00)
[2016-07-26] MEDS ORDERED: PANTOPRAZOLE 80 MG in IV NS 0.9% 100 ML IV ONE (14:00)
[2016-07-26 14:06] LABS: CALCIUM, SERUM 8.5 mg/dL (8.5-10.1); CREATININE 1.3 mg/dL (0.6-1.3)
[2016-07-26 14:11] LABS: ALBUMIN 2.7 g/dL (3.4-5.0); BILIRUBIN,DIRECT 0.1 mg/dL (0.0-0.2); BILIRUBIN,TOTAL 0.3 mg/dL (0.2-1.0); TOTAL PROTEIN, SERUM 7.2 g/dL (6.4-8.2)
[2016-07-26 14:14] LABS: INR 1.09 (0.87-1.13); PROTHROMBIN TIME 11.7 SECS (9.5-12.7)
[2016-07-26] MEDS: PANTOPRAZOLE 80 MG in IV NS 0.9% 500 ML IV ONE ×2 (14:25→15:11)
[2016-07-26] MEDS ORDERED: IOHEXOL-300 100 ML VIAL IV ONE (14:28)
[2016-07-26] MEDS ORDERED: CT SWABBABLE VALVE TRANS SET 1 EA INFUS.SET MC ONE (14:28)
[2016-07-26] MEDS ORDERED: IV NS 0.9% 250 ML IV ONE (14:28)
--- NOTE | 2016-07-26 14:50 | NUR ---
US tech at bedside
--- NOTE | 2016-07-26 14:57 | NUR ---
US SCAN TO BE DONE BEFORE CT SCAN.
--- NOTE | 2016-07-26 15:12 | NUR ---
per dr rgimes, no protonix drip
--- NOTE | 2016-07-26 15:45 | NUR ---
resting comfortably; nad noted. all needs attended to.
[2016-07-26 16:00] VITALS: BP 110/94
[2016-07-26] MEDS ORDERED: KETOROLAC TROMETHAMINE INJ 30 MG/ML VIAL IV ONE (16:00)
--- NOTE | 2016-07-26 16:13 | NUR ---
CALLED (SURGEON), TRANSFERRED CALL TO
--- NOTE | 2016-07-26 16:15 | NUR ---
CALLED NURSING SUP. FOR MS BED
--- NOTE | 2016-07-26 16:18 | NUR ---
DR.TIM KORY SMALLS BULLARD OPERATOR
[2016-07-26] MEDS ORDERED: RISP0.2515 PO (16:27)
[2016-07-26] MEDS ORDERED: PIPERACILLIN /TAZOBACTAM 3.375 G in IV D5W 50 ML IV ONE (16:30)
[2016-07-26 17:04] LABS: HEMOGLOBIN 12.5 g/dL (13.5-17.5)
[2016-07-26] MEDS ORDERED: MORPHINE SULFATE INJ 4 MG/ML DISP.SYRIN IV STA (17:10)
--- NOTE | 2016-07-26 17:18 | NUR ---
pt c/o abd pain, denies nausea. order for pain medication obtained and administered.
--- NOTE | 2016-07-26 17:34 | NUR ---
pt transported to rm 204 in stable condition
--- NOTE | 2016-07-26 17:40 | NUR ---
MS RN NOTES ADMITTED PATIENT FROM ER, DX. DIVERTICULITIS WITH PERFORATION, PERIHEPATIC ABSCESS BY DR. MELISSA HORN. AAO X 3, ON RA, NAD, NO SOB, RESPIRATION UNLABORED. ABDOMINAL PAIN LLQ 5/10, RECEIVED PAIN MEDICATION A WHILE AGO AT ER, RT HAND G 20 IVHL, FLUSHES WELL,SITE CLEAR, ON NPO EXCEPT MEDS. ABDOMEN SOFT/NON TENDER. NO NAUSEA/VOMITING. SEE NURSING FLOWSHEET FOR SKIN ISSUES. AMBULATES WITH ASSIST. UNIT ORIENTATION DONE AND USE OF CALL LIGHT, BED LOW/LOCKED. SRX2. WILL CONTINUE TO MONITOR. PER ER STAFF, DR. CARLSON CONSULTED AND PER DR. CARLSON - NONSURGICAL AT THE MOMENT. WILL OBSERVE AND WILL MEDICALLY MANAGE.
--- NOTE | 2016-07-26 17:41 | NUR ---
MS RN NOTES DR. MELISSA HORN NOTIFIED ABOUT ADMISSION.
[2016-07-26 17:56] VITALS: BP 118/94
[2016-07-26 18:00] VITALS: BP 118/94
[2016-07-26] MEDS ORDERED: ACETAMINOPHEN 325 MG TABLET PO PRN (19:00)
[2016-07-26] MEDS ORDERED: Z GUARD REMEDY 2 OZ OINT TP PRN (19:00)
[2016-07-26] MEDS ORDERED: ONDANSETRON HCL/PF 4 MG/2 ML VIAL IVP PRN (19:00)
--- NOTE | 2016-07-26 19:20 | NUR ---
MS/RN NOTES RECEIVED PT. LYING IN BED. AWAKE, ALERT AND ORIENTED X4. BREATHING EVEN AND UNLABORED ON ROOM AIR. NO SOB, RESPIRATORY DISTRESS NOTED AT THIS TIME. PT. COMPLAINS OF PAIN 6/10 IN HIS ABDOMEN, RIGHT LOWER QUADRANT. PT. RECEIVED PAIN MEDICATION RECENTLY IN THE ER. WILL ADMINISTER PAIN MEDICATION ORDERED AND WILL CONTINUE TO MONITOR PT. FOR PAIN. PT. WITH RIGHT HAND 20 GAUGE SALINE LOCK PRESENT, PATENT AND INTACT. WILL ADMINISTER TO PT. IV FLUIDS = D5 1/2 NS @ 75ML/HR ORDERED. BED IN LOWEST POSITION, CALL LIGHT WITHIN REACH. WILL CONTINUE TO MONITOR.
[2016-07-26] MEDS ORDERED: IV D5/0.45 NACL 1,000 ML IV ONE (19:45)
[2016-07-26] MEDS: IV D5/0.45 NACL 1,000 ML IV PRN (19:52)
[2016-07-26 20:00] VITALS: BP 156/90
[2016-07-26] MEDS: MORPHINE SULFATE INJ 2 MG/ML DISP.SYRIN IV PRN (21:35)
[2016-07-26] MEDS: ATORVASTATIN 40 MG TABLET PO SCH (21:36)
--- NOTE | 2016-07-26 22:15 | NUR ---
MS/RN NOTES NOTIFIED DR. PERLA PT. WITH DECREASED HEART RATE RANGING FROM 48-59. PT. IS ASYMPTOMATIC. PER DR. PERLA HOLD ANY MEDS THAT WOUL DECREASE HEART RATE AND CONTINUE TO MONITOR. PT. REQUESTING RESTORIL PRN SLEEP PER DR. PERLA OK FOR PT. TO HAVE RESTORIL ORDERED. WILL CONTINUE TO MONITOR.
[2016-07-26] MEDS: TEMAZEPAM 15 MG CAPSULE PO PRN (22:51)
[2016-07-27] MEDS: MORPHINE SULFATE INJ 2 MG/ML DISP.SYRIN IV PRN ×6 (01:39→22:07)
--- NOTE | 2016-07-27 06:34 | NUR ---
MS/RN NOTES PT. LYING IN BED RESTING. BREATHING EVEN AND UNLABORED ON ROOM AIR. NO SOB, RESPIRATORY DISTRESS NOTED AT THIS TIME. PT. COMPLAINS OF PAIN 09/03. PAIN MEDICATION RECENTLY ADMINISTERED TO PT. NO COMPLAINTS OF HEADACHE OR DIZZINESS NOTED AT THIS TIME AND THROUGHOUT SHIFT. PT. WITH RIGHT HAND 20 GAUGE PERIPHERAL IV PRESENT, PATENT AND INTACT ADMINISTERING TO PT. D5 1/2 NS @ 75ML/HR. ALL PT. NEEDS MET. BED IN LOWEST POSITION, CALL LIGHT WITHIN REACH. WILL ENDORSE TO DAYSHIFT NURSE FOR CONTINUITY OF CARE.
[2016-07-27 06:46] LABS: BASOPHILS % (AUTO) 0.6 % (0.0-2.0); EOSINOPHILS # (AUTO) 0.5 /CMM (0.0-0.7); HEMATOCRIT 40 % (39-51); HEMOGLOBIN 12.8 g/dL (13.5-17.5); LYMPHOCYTES # (AUTO) 1.3 /CMM (0.8-4.8); LYMPHOCYTES % (AUTO) 21.2 % (20.0-44.0); MEAN CORPUSCULAR HEMOGLOBIN 28 PG (26.0-33.0); MEAN CORPUSCULAR HGB CONC 32 g/dl (31.0-36.0); MEAN CORPUSCULAR VOLUME 86 fL (80-96); MONOCYTES # (AUTO) 0.6 /CMM (0.1-1.30); MONOCYTES % (AUTO) 9.5 % (2.0-12.0); NEUTROPHILS # (AUTO) 3.7 /CMM (1.8-8.9); NEUTROPHILS % (AUTO) 60.7 % (43.0-81.0); PLATELET COUNT (AUTO) 156 /CMM (150-450); RDW COEFFICIENT OF VARIATION 16.7 (11.5-15.0); RED BLOOD CELL COUNT(AUTO) 4.62 MIL/uL (4.5-6.0); WHITE BLOOD COUNT (AUTO) 6.2 K/uL (4.3-11.0)
[2016-07-27 07:10] LABS: THYROID STIMULATING HORMONE 2.663 uIU/mL (0.358-3.74)
[2016-07-27 07:15] LABS: ALBUMIN 2.6 g/dL (3.4-5.0); BILIRUBIN,TOTAL 0.4 mg/dL (0.2-1.0); CALCIUM, SERUM 8.3 mg/dL (8.5-10.1); CREATININE 1.2 mg/dL (0.6-1.3); MAGNESIUM 1.5 mg/dL (1.8-2.4); POTASSIUM 4.1 mmol/L (3.5-5.1); TOTAL PROTEIN, SERUM 6.9 g/dL (6.4-8.2)
--- NOTE | 2016-07-27 07:30 | NUR ---
MS RN AM NOTES PT IN BED, AAO X 3, ON RA, NAD, NO SOB, RESPIRATION UNLABORED. ABDOMINAL PAIN LLQ 2/10, RECEIVED PAIN MEDICATION A WHILE AGO, RT HAND G 20 WITH D5 1/2 NS AT 75 ML/HR RUNNING, SITE CLEAR. ON CLEAR LIQUID. ABDOMEN SOFT/NON TENDER. NO NAUSEA/VOMITING. SEE NURSING FLOWSHEET FOR SKIN ISSUES. AMBULATES WITH ASSIST. CALL LIGHT WITHIN REACH, BED LOW/LOCKED. SRX2. WILL CONTINUE TO MONITOR.
[2016-07-27 08:00] VITALS: BP 114/69
[2016-07-27] MEDS: IV D5/0.45 NACL 1,000 ML IV PRN (08:28)
[2016-07-27] MEDS: risperiDONE 0.25 MG TABLET PO SCH ×2 (08:29→17:08)
[2016-07-27] MEDS: FLUOXETINE HCL 20 MG CAPSULE PO SCH (08:29)
[2016-07-27] MEDS: LOSARTAN POTASSIUM 25 MG TABLET PO SCH (08:29)
[2016-07-27] MEDS: METOPROLOL TARTRATE 50 MG TABLET PO SCH ×2 (08:30→17:09)
[2016-07-27] MEDS: GABAPENTIN 100 MG CAPSULE PO SCH ×3 (08:30→17:08)
--- NOTE | 2016-07-27 09:30 | NUR ---
MS RN NOTES ADMINISTERED DUE MEDS. DR. CARLSON AT BEDSIDE.
[2016-07-27 10:53] VITALS: BP 114/69
[2016-07-27] MEDS ORDERED: SECONDARY IV SET 1 EA INFUS.SET MC ONE ×2 (10:56→12:52)
[2016-07-27] MEDS: METRONIDAZOLE 500MG/ NS 100ML 500 MG in PREMIX 1 EA IV SCH ×2 (11:06→19:24)
--- NOTE | 2016-07-27 11:06 | NUR ---
MS RN NOTES STARTED FLAGYL IV.
--- NOTE | 2016-07-27 11:10 | NUR ---
MS RN NOTES DR.TIM HORN AT BEDSIDE. MAGNESIUM 1.5. NEW ORDER TO GIVE 2 BAGS.
[2016-07-27] MEDS: Magnesium 1GM/D5W 100ML PREMIX 100 ML IV SCH ×2 (12:54→13:53)
[2016-07-27] MEDS ORDERED: CEFAZOLIN 1 GM VIAL IM SCH (13:00)
[2016-07-27] MEDS ORDERED: CEFAZOLIN 2 GM in IV D5W 50 ML IV SCH (13:00)
[2016-07-27] MEDS: LEVOFLOXACIN 500 MG /D5W 100ML 500 MG in PREMIX 1 EA IV SCH (13:27)
--- NOTE | 2016-07-27 13:27 | NUR ---
MS RN NOTES LEVAQUIN IV STARTED.
[2016-07-27 16:00] VITALS: BP 136/83
[2016-07-27] MEDS: CLONIDINE HCL 0.1 MG TABLET PO SCH (17:09)
[2016-07-27 18:00] VITALS: BP 136/83
--- NOTE | 2016-07-27 18:27 | NUR ---
MS RN CLOSING NOTES PT RESTING IN BED, AAO X 3, ON RA, NAD, NO SOB, RESPIRATION UNLABORED. ABDOMINAL PAIN LLQ 2/10, RECEIVED PAIN MEDICATION A WHILE AGO, RT HAND G 20 WITH D5 1/2 NS AT 75 ML/HR RUNNING, SITE CLEAR. REGULAR DIET. ABDOMEN SOFT/NON TENDER. NO NAUSEA/VOMITING. AMBULATES WITH ASSIST. CALL LIGHT WITHIN REACH, BED LOW/LOCKED. SRX2. ALL NEEDS MET. MAGNESIUM 2 BAGS COMPETED DOSE. PM CARE DONE. NO OTHER SIGNIFICANT CHANGE IN CONDITION. WILL ENDORSE TO NEXT SHIFT FOR MATI.
[2016-07-27 20:00] VITALS: BP 91/52
--- NOTE | 2016-07-27 20:00 | NUR ---
RECEIVED PATIENT IN BED, ALERT AND ORIENTED X4, CALM, NO SOB, NO DISTRESS, ABLE TO VERBALIZE NEEDS, PER PATIENT RECEIVED PAIN MEDICATION ALMOST AN HOUR AGO, WILL ASK FOR PAIN MEDICATION WHEN NEEDED. LEFT HAND PERIPHERAL LINE IS PATENT AND INFUSING WELL. PATIENT REPORTED NO N/V AFTER DINNER. MADE COMFORTABLE, CALL LIGHT WITHIN REACH. WILL CONTINUE TO MONITOR.
[2016-07-27] MEDS: ATORVASTATIN 40 MG TABLET PO SCH (21:14)
--- NOTE | 2016-07-27 22:00 | NUR ---
PERIPHERAL LINE TO RIGHT HAND IS LEAKING, REMOVED IV LINE. STARTED NEW IV LINE TO RIGHT UPPER ARM WITH #22 GAUGE, PROCEDURE TOLERATED WELL.
[2016-07-27] MEDS: TEMAZEPAM 15 MG CAPSULE PO PRN (23:30)
[2016-07-27 23:31] VITALS: BP 146/77
[2016-07-28] MEDS: MORPHINE SULFATE INJ 2 MG/ML DISP.SYRIN IV PRN ×6 (02:20→22:22)
--- NOTE | 2016-07-28 02:30 | NUR ---
PATIENT COMPLAINING OF 8/10 PAIN TO LEFT LOWER QUADRANT OF THE ABDOMEN, PATIENT DOES NOT APPEAR IN DISTRESS, NO FACIAL GRIMACING, NO DISCOMFORT, REQUESTING MORPHINE 2MG IVP Q4 HOURS. NO NAUSEA/VOMITING, NO SOB, O2 SAT AT ROOM AIR 95%, BP IS WNL. WILL CONTINUE TO MONITOR.
[2016-07-28] MEDS: IV D5/0.45 NACL 1,000 ML IV PRN ×2 (03:04→18:13)
[2016-07-28] MEDS: METRONIDAZOLE 500MG/ NS 100ML 500 MG in PREMIX 1 EA IV SCH ×3 (03:04→21:43)
--- NOTE | 2016-07-28 06:29 | NUR ---
PATIENT IS ALERT AND ORIENTED X3, CALM, NO SOB,REQUESTING MORPHINE 2 MG IVP Q4HRS ROUND THE CLOCK. NO SEDATION NOTED, NO RESPIRATORY DISTRESS, NO VOMITING, NO ADVERSE CHANGE OF CONDITION DURING SHIFT, ALL DUE MEDICATIONS GIVEN, NEEDS ATTENDED, CALL LIGHT WITHIN REACH.
[2016-07-28 06:52] LABS: BASOPHILS % (AUTO) 0.4 % (0.0-2.0); EOSINOPHILS # (AUTO) 0.3 /CMM (0.0-0.7); EOSINOPHILS % (AUTO) 5.8 % (0.0-6.0); HEMATOCRIT 36 % (39-51); HEMOGLOBIN 11.6 g/dL (13.5-17.5); LYMPHOCYTES # (AUTO) 1.1 /CMM (0.8-4.8); LYMPHOCYTES % (AUTO) 19.1 % (20.0-44.0); MEAN CORPUSCULAR HEMOGLOBIN 28 PG (26.0-33.0); MEAN CORPUSCULAR HGB CONC 33 g/dl (31.0-36.0); MEAN CORPUSCULAR VOLUME 85 fL (80-96); MONOCYTES # (AUTO) 0.5 /CMM (0.1-1.30); MONOCYTES % (AUTO) 8.2 % (2.0-12.0); NEUTROPHILS # (AUTO) 3.9 /CMM (1.8-8.9); NEUTROPHILS % (AUTO) 66.5 % (43.0-81.0); PLATELET COUNT (AUTO) 157 /CMM (150-450); RDW COEFFICIENT OF VARIATION 16.3 (11.5-15.0); RED BLOOD CELL COUNT(AUTO) 4.21 MIL/uL (4.5-6.0); WHITE BLOOD COUNT (AUTO) 5.9 K/uL (4.3-11.0)
[2016-07-28 07:10] LABS: CREATININE 1.2 mg/dL (0.6-1.3); MAGNESIUM 1.8 mg/dL (1.8-2.4); PHOSPHORUS 4.3 mg/dL (2.5-4.9); POTASSIUM 4.1 mmol/L (3.5-5.1)
--- NOTE | 2016-07-28 07:47 | NUR ---
MS/RN Patient received Patient received from shift leader. A/OX3, stating that pain level is currently 7/10. Last given morphine at 6:30. Bed in low setting, side rails X3 in upright position, call light within reach and patient aware of how to use. Will continue to monitor and ensure safety.
[2016-07-28 08:00] VITALS: BP 157/81
[2016-07-28] MEDS: GABAPENTIN 100 MG CAPSULE PO SCH ×3 (08:14→16:57)
[2016-07-28] MEDS: LOSARTAN POTASSIUM 25 MG TABLET PO SCH (08:15)
[2016-07-28] MEDS: FLUOXETINE HCL 20 MG CAPSULE PO SCH (08:15)
[2016-07-28] MEDS: risperiDONE 0.25 MG TABLET PO SCH ×2 (08:15→16:57)
[2016-07-28] MEDS: METOPROLOL TARTRATE 50 MG TABLET PO SCH ×2 (08:16→16:57)
--- NOTE | 2016-07-28 09:00 | NUR ---
MS/RN Medications Morning medications administered as ordered.
--- NOTE | 2016-07-28 11:30 | NUR ---
MS/RN S/B Dr Renteria Seen by Dr Renteria - diet changed to clear liquids.
[2016-07-28] MEDS: LEVOFLOXACIN 500 MG /D5W 100ML 500 MG in PREMIX 1 EA IV SCH (12:45)
--- NOTE | 2016-07-28 13:00 | NUR ---
MS/RN Diet clarification Diet order clarified with Magan Boss - carola GUERIN, change diet back to regular.
[2016-07-28 16:00] VITALS: BP 114/73
--- NOTE | 2016-07-28 16:00 | NUR ---
MS/RN Dr Boss order Per Dr Boss's progress note - contine with fluids and IVAB. Encourage patient to ambulate.
[2016-07-28] MEDS: CLONIDINE HCL 0.1 MG TABLET PO SCH (18:14)
--- NOTE | 2016-07-28 18:34 | NUR ---
MS/RN End note Last pain medication administered at 1814. Dressing to sacral area remians dry and intact. No needs expressed, will endorse to director educational radio.
--- NOTE | 2016-07-28 19:30 | NUR ---
MS RN NOTE PATIENT STABLE. NO RESPIRATORY DISTRESS. STATES HE IS HAVING 8/10 ABDOMINAL PAIN. RELAXATION TECHNIQUES PROVIDED. WILL ADMINISTER PRN PAIN MEDICATION ORDERED. IV SITE INTACT, WITH NO REDNESS NOTED. BED LOCKED AND IN LOWEST POSITION. SIDE RAILS UP, CALL LIGHT WITHIN REACH. WILL CONTINUE TO MONITOR.
[2016-07-28] MEDS: ATORVASTATIN 40 MG TABLET PO SCH (21:43)
[2016-07-28 22:00] VITALS: BP 158/90
[2016-07-28] MEDS: TEMAZEPAM 15 MG CAPSULE PO PRN (22:49)
[2016-07-29] MEDS: MORPHINE SULFATE INJ 2 MG/ML DISP.SYRIN IV PRN ×6 (02:19→22:28)
[2016-07-29] MEDS: METRONIDAZOLE 500MG/ NS 100ML 500 MG in PREMIX 1 EA IV SCH ×3 (05:35→19:56)
[2016-07-29 06:10] LABS: BASOPHILS % (AUTO) 0.5 % (0.0-2.0); EOSINOPHILS # (AUTO) 0.4 /CMM (0.0-0.7); EOSINOPHILS % (AUTO) 7.1 % (0.0-6.0); HEMATOCRIT 37 % (39-51); HEMOGLOBIN 12.2 g/dL (13.5-17.5); LYMPHOCYTES # (AUTO) 1.2 /CMM (0.8-4.8); LYMPHOCYTES % (AUTO) 22.1 % (20.0-44.0); MEAN CORPUSCULAR HEMOGLOBIN 28 PG (26.0-33.0); MEAN CORPUSCULAR HGB CONC 33 g/dl (31.0-36.0); MEAN CORPUSCULAR VOLUME 84 fL (80-96); MONOCYTES # (AUTO) 0.5 /CMM (0.1-1.30); NEUTROPHILS # (AUTO) 3.2 /CMM (1.8-8.9); NEUTROPHILS % (AUTO) 60.3 % (43.0-81.0); PLATELET COUNT (AUTO) 158 /CMM (150-450); RDW COEFFICIENT OF VARIATION 16.5 (11.5-15.0); RED BLOOD CELL COUNT(AUTO) 4.43 MIL/uL (4.5-6.0); WHITE BLOOD COUNT (AUTO) 5.3 K/uL (4.3-11.0)
[2016-07-29 06:28] LABS: CALCIUM, SERUM 8.4 mg/dL (8.5-10.1); CREATININE 1.2 mg/dL (0.6-1.3); MAGNESIUM 1.8 mg/dL (1.8-2.4); PHOSPHORUS 4.3 mg/dL (2.5-4.9)
--- NOTE | 2016-07-29 06:33 | NUR ---
MS RN NOTE PATIENT STABLE. ALL NEEDS MET AND ATTENDED TO. WILL ENDORSE TO DAY SHIFT FOR MATI.
--- NOTE | 2016-07-29 07:30 | NUR ---
MS/RN Patient received Patient received from night shift supervisor. No needs at this time, call light within reach, will continue to monitor. Patient unhappy that diet has been changed back to full liquid by Dr Renteria despite being changed by Dr Boss yesterday to regular. Explained to patient that Dr Renteria did not him to be given regular food at this time.
[2016-07-29 07:32] VITALS: BP 132/80
[2016-07-29 08:05] VITALS: BP 132/80
[2016-07-29] MEDS: risperiDONE 0.25 MG TABLET PO SCH ×2 (08:28→17:26)
[2016-07-29] MEDS: GABAPENTIN 100 MG CAPSULE PO SCH ×3 (08:28→17:25)
[2016-07-29] MEDS: FLUOXETINE HCL 20 MG CAPSULE PO SCH (08:28)
[2016-07-29] MEDS: METOPROLOL TARTRATE 50 MG TABLET PO SCH ×2 (08:29→17:26)
[2016-07-29] MEDS: LOSARTAN POTASSIUM 25 MG TABLET PO SCH (08:29)
--- NOTE | 2016-07-29 08:35 | NUR ---
MS/RN Medications Morning medications administered as ordered.
[2016-07-29] MEDS: IV D5/0.45 NACL 1,000 ML IV PRN (10:16)
--- NOTE | 2016-07-29 10:25 | NUR ---
MS/RN Pain medication Pain medication given for pain scale 7/10 right sided abdomen. Will monitor effectiveness.
--- NOTE | 2016-07-29 11:30 | NUR ---
MS/RN S/B Dr Pink Seen by Dr Pink - radha to remain as full liquid until further order is given by Dr Renteria to advance. Labs ordered for tomorrow.
[2016-07-29] MEDS: LEVOFLOXACIN 500 MG /D5W 100ML 500 MG in PREMIX 1 EA IV SCH (13:02)
[2016-07-29 15:34] VITALS: BP 107/67
[2016-07-29 16:16] VITALS: BP 107/67
[2016-07-29] MEDS: CLONIDINE HCL 0.1 MG TABLET PO SCH (18:16)
[2016-07-29 19:00] VITALS: BP 113/70
--- NOTE | 2016-07-29 19:20 | NUR ---
MS RN NOTES RECEIVED ON BED AWAKE,ALERT,ORIENTED X4,BREATHING NON LABORED,PAIN BEARABLE AT THIS TIME,POST MEDICATED WITH MORPHINE AT 1820.PRESENT IVF INFUSING WELL VIA IV PUMP,SITE PATENT.CALL LIGHT IN REACH,NEEDS ANTICIPATED.MEPILEX TO SACRAL AREA REMAINS IN PLACE.ENCOURAGED TO TURN SIDE BY SIDE.
--- NOTE | 2016-07-29 19:38 | NUR ---
MS/RN End note No changes in care at this time, last pain medication administered at 1820. New new needs or concerns at this time. Will endorse to overnight houseperson.
[2016-07-29 20:00] VITALS: BP 113/70
[2016-07-29] MEDS: ATORVASTATIN 40 MG TABLET PO SCH (22:01)
--- NOTE | 2016-07-29 22:28 | NUR ---
MS RN NOTES PAIN MANAGEMENT C/O ABDOMINAL PAIN 8/10 ON PAIN SCALE,MEDICATED WITH MORPHINE 2MG IV ORDERED FOR SEVERE PAIN.WILL MONITOR FOR RELIEF.
[2016-07-29] MEDS: TEMAZEPAM 15 MG CAPSULE PO PRN (23:21)
--- NOTE | 2016-07-29 23:23 | NUR ---
MS RN NOTES C/O INSOMNIA,RESTORIL 30MG PO GIVEN PER PATIENT REQUEST
[2016-07-30] MEDS: MORPHINE SULFATE INJ 2 MG/ML DISP.SYRIN IV PRN ×4 (02:38→16:58)
--- NOTE | 2016-07-30 02:39 | NUR ---
MS RN NOTE: PATIENT COMPLAINS OF ABDOMINAL PAIN 01/04,MORPHINE 2MG IV GIVEN PER MD ORDER. WILL CONTINUE TO MONITOR.
[2016-07-30] MEDS: METRONIDAZOLE 500MG/ NS 100ML 500 MG in PREMIX 1 EA IV SCH (04:02)
[2016-07-30] MEDS: IV D5/0.45 NACL 1,000 ML IV PRN (05:53)
--- NOTE | 2016-07-30 07:00 | NUR ---
MS RN NOTES NOTED IV SITE INFILTRATED,TRIED TO PUT NEW SALINE LOCK BUT UNSUCCESSFUL.WARM COMPRESS APPLIED TO RIGHT FORE ARM.NO NEW COMPLAINTS.NEEDS ATTENDED.ENDORSED TO SANJU LANGLEY FOR MATI.
[2016-07-30 07:11] LABS: CALCIUM, SERUM 8.6 mg/dL (8.5-10.1); CREATININE 1.2 mg/dL (0.6-1.3); MAGNESIUM 1.7 mg/dL (1.8-2.4); PHOSPHORUS 4.4 mg/dL (2.5-4.9); POTASSIUM 4.7 mmol/L (3.5-5.1)
[2016-07-30 07:12] LABS: BASOPHILS % (AUTO) 0.4 % (0.0-2.0); EOSINOPHILS # (AUTO) 0.4 /CMM (0.0-0.7); EOSINOPHILS % (AUTO) 6.1 % (0.0-6.0); HEMATOCRIT 38 % (39-51); HEMOGLOBIN 12.5 g/dL (13.5-17.5); LYMPHOCYTES # (AUTO) 1.3 /CMM (0.8-4.8); LYMPHOCYTES % (AUTO) 20.6 % (20.0-44.0); MEAN CORPUSCULAR HEMOGLOBIN 28 PG (26.0-33.0); MEAN CORPUSCULAR HGB CONC 33 g/dl (31.0-36.0); MEAN CORPUSCULAR VOLUME 85 fL (80-96); MONOCYTES # (AUTO) 0.6 /CMM (0.1-1.30); MONOCYTES % (AUTO) 8.6 % (2.0-12.0); NEUTROPHILS # (AUTO) 4.2 /CMM (1.8-8.9); NEUTROPHILS % (AUTO) 64.3 % (43.0-81.0); PLATELET COUNT (AUTO) 156 /CMM (150-450); RDW COEFFICIENT OF VARIATION 16.1 (11.5-15.0); RED BLOOD CELL COUNT(AUTO) 4.52 MIL/uL (4.5-6.0); WHITE BLOOD COUNT (AUTO) 6.5 K/uL (4.3-11.0)
--- NOTE | 2016-07-30 07:35 | NUR ---
RN NOTES RECEIVED PT IN BED. AWAKE, ALERT, ORIENTED X 3. IN NO APPARENT DISTRESS. STATED PRN PAIN MEDS WORKING, PAIN IS RESOLVING. NOTED. WILL CONTINUE TO MONITOR. PT'S CALL LIGHT IN REACH
[2016-07-30 08:00] VITALS: BP 133/78
[2016-07-30 08:02] VITALS: BP 133/78
[2016-07-30] MEDS: FLUOXETINE HCL 20 MG CAPSULE PO SCH (08:16)
[2016-07-30] MEDS: METOPROLOL TARTRATE 50 MG TABLET PO SCH ×2 (08:16→16:58)
[2016-07-30] MEDS: LOSARTAN POTASSIUM 25 MG TABLET PO SCH (08:16)
[2016-07-30] MEDS: GABAPENTIN 100 MG CAPSULE PO SCH ×3 (08:16→16:57)
[2016-07-30] MEDS: risperiDONE 0.25 MG TABLET PO SCH ×2 (08:18→16:57)
--- NOTE | 2016-07-30 10:00 | NUR ---
RN NOTES PT TOLERATED ALL DUE MEDS AND TREATMENTS. PT WITH POOR APPETITE, BUT ABLE TO TOLERATE BREAKFAST. WILL CONTINUE TO MONITOR PT
[2016-07-30] MEDS ORDERED: METRONIDAZOLE 500 MG TABLET PO SCH (12:00)
[2016-07-30] MEDS: Magnesium 1GM/D5W 100ML PREMIX 100 ML IV SCH ×2 (12:59→14:45)
[2016-07-30] MEDS ORDERED: LEVOFLOXACIN (500MG) 500 MG TABLET PO SCH (13:00)
--- NOTE | 2016-07-30 16:30 | NUR ---
RN NOTES RECEIVED NEW ORDER FOR DISCHARGE. NOTED AND CARRIED OUT. EXITCARE DONE FOR DISCHARGE PAPERS AND INSTRUCTIONS. PT REFUSED PHOTOS TO BE TAKEN; EXPLAINED BENEFIT OF DOCUMENTING PROGRESS OF WOUND, BUT CONTINUED TO REFUSE. NOTED.
[2016-07-30] MEDS ORDERED: LEVO500T15 PO (16:35)
[2016-07-30] MEDS ORDERED: METR500T PO (16:35)
[2016-07-30 16:54] VITALS: BP 127/69
[2016-07-30 16:58] VITALS: BP 127/69
--- NOTE | 2016-07-30 17:00 | NUR ---
RN NOTES PT SEEN BY DR CARLSON- SAID OK TO PROCEED WITH PT DISCHARGE. GAVE PT INSTRUCTIONS TO DO CT OF ABDOMEN WITH CONTRAST W/IN 7 DAYS, ADVISED BY MD. ALL PRESCRIPTIONS PROVIDED AND EXPLAINED TO PT. PT VERBALIZED UNDERSTANDING
[2016-07-30] MEDS: CLONIDINE HCL 0.1 MG TABLET PO SCH (18:00)
--- NOTE | 2016-07-30 18:40 | NUR ---
RN NOTES PT DISCHARGED ORDERED. IN NO APPARENT DISTRESS. VS WNL
== END 2016-07-30 18:40 | DRG 392 ==
LOC: ER 13:23 → MEDSG2 16:58
PROVIDERS: ADMIT Nurse Practitioner Acute Care; ATTEND Nurse Practitioner Acute Care
DX: K57.32 Diverticulitis of large intestine without perforation or abscess without bleeding (principal); E44.0 Moderate protein-calorie malnutrition; E83.42 Hypomagnesemia; E83.39 Other disorders of phosphorus metabolism; F32.9 Major depressive disorder, single episode, unspecified; I10 Essential (primary) hypertension; K21.9 Gastro-esophageal reflux disease without esophagitis; K74.60 Unspecified cirrhosis of liver; I25.10 Atherosclerotic heart disease of native coronary artery without angina pectoris; G62.9 Polyneuropathy, unspecified; Z90.49 Acquired absence of other specified parts of digestive tract
CPT/HCPCS: 36415; 71010-TC; 76705-TC; 80048-TC; 80053-TC; 80061-TC; 80076-TC; 83605-TC; 83690-TC; 83735-TC; 84100-TC; 84443-TC; 85025-TC; 85027-TC; 85730-TC; 86850-TC; 87040-TC; 87081-TC; A4216; A4606; C9113; J0690; J1956; J2270; J2405; J2543; J3475; J3490; J7030; J7040; J7050; J7060; Q9967; Z7610

== ENCOUNTER 2017-11-22 12:10 | Emergency (ER) | payer MEDICARE, OTHER ==
[~2017-11-22] VITALS: Ht 177.8 cm; Wt 77.1 kg
[~2017-11-22 12:10] MED LIST changes: -CYAN100096 PO; +LEVO500T2 PO; +METO50TA16 PO; -METO50TA3 PO; +METR500T PO; -PIPE3.379 IV; -RANI150T12 PO; +RANI150T43 PO; +RISP0.2515 PO; -RISP0.5T20 PO
--- NOTE | 2017-11-22 12:28 | NUR ---
LEFT LOWER ABD PAIN SINCE THIS AM, ETIENNE N/V/D. HX OF DIVERTICULITIS PER PT. AWAITING EVAL WITH MD/FOOD CRITIC
[2017-11-22 13:03] LABS: BASOPHILS % (AUTO) 0.6 % (0.0-2.0); HEMATOCRIT 44 % (39-51); HEMOGLOBIN 14.6 g/dL (13.5-17.5); LYMPHOCYTES # (AUTO) 1.8 /CMM (0.8-4.8); LYMPHOCYTES % (AUTO) 22.7 % (20.0-44.0); MEAN CORPUSCULAR HEMOGLOBIN 30 PG (26.0-33.0); MEAN CORPUSCULAR HGB CONC 33 g/dl (31.0-36.0); MEAN CORPUSCULAR VOLUME 91 fL (80-96); MONOCYTES # (AUTO) 0.6 /CMM (0.1-1.30); MONOCYTES % (AUTO) 7.5 % (2.0-12.0); NEUTROPHILS # (AUTO) 5.2 /CMM (1.8-8.9); NEUTROPHILS % (AUTO) 65.2 % (43.0-81.0); PLATELET COUNT (AUTO) 141 /CMM (150-450); RDW COEFFICIENT OF VARIATION 13.9 (11.5-15.0); RED BLOOD CELL COUNT(AUTO) 4.84 MIL/uL (4.5-6.0); WHITE BLOOD COUNT (AUTO) 7.9 K/uL (4.3-11.0)
[2017-11-22 13:13] LABS: CALCIUM, SERUM 8.7 mg/dL (8.5-10.1); CREATININE 1.4 mg/dL (0.6-1.3); POTASSIUM 4.3 mmol/L (3.5-5.1)
[2017-11-22] MEDS ORDERED: ONDANSETRON HCL/PF 4 MG/2 ML VIAL ONE (13:15)
[2017-11-22 13:16] LABS: INR 0.96 (0.85-1.15)
[2017-11-22] MEDS ORDERED: MORPHINE SULFATE INJ 4 MG/ML DISP.SYRIN ONE (13:16)
[2017-11-22 13:18] LABS: ALBUMIN 3.2 g/dL (3.4-5.0); BILIRUBIN,DIRECT 0.1 mg/dL (0.0-0.2); BILIRUBIN,TOTAL 0.3 mg/dL (0.2-1.0); TOTAL PROTEIN, SERUM 7.4 g/dL (6.4-8.2)
[2017-11-22] MEDS: IV NS 0.9% 1,000 ML BAG IV ONE (13:20)
[2017-11-22] MEDS: ONDANSETRON HCL/PF 4 MG/2 ML VIAL IVP ONE (13:21)
[2017-11-22] MEDS: MORPHINE SULFATE INJ 2 MG/ML DISP.SYRIN IV ONE (13:29)
--- NOTE | 2017-11-22 14:08 | NUR ---
PT BACK FROM CT. PT STS ABD PAIN 09/03 " MORPHINE HELPED A LITTLE BIT ". DENIES CP, SOB, DIZZINESS, N/V @ THIS TIME. AWAITING CT RESULT.
--- NOTE | 2017-11-22 14:44 | NUR ---
Patient discharged to home in stable condition. Written and verbal after care instructions given. Patient verbalizes understanding of instruction. IV removed. Catheter intact and site benign. Pressure and 4x4 applied to site. No bleeding noted.
[2017-11-22 14:45] VITALS: BP 138/75
== END 2017-11-22 14:47 | disposition home or self-care (01) ==
LOC: ER 12:11
DX: K57.92 Diverticulitis of intestine, part unspecified, without perforation or abscess without bleeding (principal); I10 Essential (primary) hypertension; F17.200 Nicotine dependence, unspecified, uncomplicated; Z90.49 Acquired absence of other specified parts of digestive tract
CPT/HCPCS: 36415; 80048-TC; 80076-TC; 83690-TC; 85025-TC; 85730-TC; A4606; J2270; J2405; J7030; Z7610

== ENCOUNTER 2022-02-02 18:41 | Emergency (ER) | payer MEDICARE, OTHER ==
[~2022-02-02] VITALS: Ht 182.9 cm; Wt 73.5 kg
[~2022-02-02 18:41] MED LIST changes: -FLUO-120 PO; +FLUO20CA42 PO; -LOSA25TA13 PO; +LOSA25TA27 PO; +RANI-655 PO; -RANI150T43 PO
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
--- NOTE | 2022-02-02 18:58 | NUR ---
CALLED FOR FOOD TRAY.
[2022-02-02] MEDS ORDERED: ACETAMINOPHEN ES 500 MG TABLET PO ONE (19:00)
[2022-02-02] MEDS ORDERED: ACETAMINOPHEN ES 500 MG TABLET ONE (19:09)
[2022-02-02] MEDS ORDERED: FOLI-140 PO (19:21)
[2022-02-02] MEDS ORDERED: CYAN100096 PO (19:21)
[2022-02-02] MEDS ORDERED: ASPI-1169 PO (19:21)
[2022-02-02] MEDS ORDERED: PANT40TA2 PO (19:21)
[2022-02-02] MEDS ORDERED: DOCU100C58 PO (19:21)
[2022-02-02] MEDS ORDERED: ROSU20TA2 PO (19:21)
[2022-02-02] MEDS ORDERED: ERGO500093 PO (19:21)
[2022-02-02] MEDS ORDERED: SENN-261 PO (19:21)
[2022-02-02] MEDS ORDERED: TAMS-12 PO (19:21)
[2022-02-02] MEDS ORDERED: QUET100T PO (19:21)
[2022-02-02] MEDS ORDERED: ZOLP5TAB8 PO (19:21)
--- NOTE | 2022-02-02 19:35 | NUR ---
RECEIVED REPORT FROM SHIVAM MARIN. PATIENT CAME EARLIER WITH CC OF GLF. PATIENT IS AAOX4. ATTACHED TO MONITOR. VITALS CHECKED.
--- NOTE | 2022-02-02 19:40 | NUR ---
BROUGHT TO CT DEPT
--- NOTE | 2022-02-02 20:18 | NUR ---
XRAY DONE AT BEDSIDE
--- NOTE | 2022-02-02 21:11 | NUR ---
CALLED [facility] FOR BLS TRANSPORT. ETA [phone]
--- NOTE | 2022-02-02 21:27 | NUR ---
REPORT GIVEN TOAPA DEEJAY SABA OF [address]. REPORT GIVEN TO YADY WOODY AT [facility].
[2022-02-02 21:32] VITALS: BP 119/75
== END 2022-02-02 21:33 | disposition home or self-care (01) ==
LOC: ER 18:53
DX: S63.91XA Sprain of unspecified part of right wrist and hand, initial encounter (principal); S00.83XA Contusion of other part of head, initial encounter; I10 Essential (primary) hypertension; Z90.49 Acquired absence of other specified parts of digestive tract; Z79.899 Other long term (current) drug therapy; W01.0XXA Fall on same level from slipping, tripping and stumbling without subsequent striking against object, initial encounter; Y93.89 Activity, other specified; Y92.89 Other specified places as the place of occurrence of the external cause; Y99.8 Other external cause status
CPT/HCPCS: 70450-TC; 70486-TC; 72125-TC; 73130-TC